=== PATIENT | female | born 1965 | race Caucasian/White ===

== ENCOUNTER 2016-04-08 19:57 | Emergency (ER) | payer BC | END 2016-04-08 22:01 | disposition home or self-care (01) | LOC: D.ER 19:57 | DX: T78.40XA Allergy, unspecified, initial encounter (principal); X58.XXXA Exposure to other specified factors, initial encounter; E11.9 Type 2 diabetes mellitus without complications ==

== ENCOUNTER → 2016-05-05 16:22 | Outpatient (CLI) | payer BC | END | disposition home or self-care (01) | LOC: D.MAMMO 04-16 10:30 → D.US 04-16 11:30 → D.MAMMO 10:30 | DX: R92.8 Other abnormal and inconclusive findings on diagnostic imaging of breast (principal) ==

== ENCOUNTER → 2017-07-24 21:36 | Outpatient (CLI) | payer BC | END | disposition home or self-care (01) | LOC: D.MAMMO 11:30 | DX: Z12.31 Encounter for screening mammogram for malignant neoplasm of breast (principal) ==

== ENCOUNTER → 2017-08-14 23:48 | Outpatient (CLI) | payer BC | END | disposition home or self-care (01) | LOC: D.MAMMO 10:00 | DX: R92.8 Other abnormal and inconclusive findings on diagnostic imaging of breast (principal) ==

== ENCOUNTER 2018-04-05 20:30 | Emergency (ER) | payer BC ==
[~2018-04-05] VITALS: Ht 165.1 cm; Wt 90.9 kg
[2018-04-05 20:32] VITALS: Ht 165.1 cm; Wt 90.9 kg
[2018-04-05] MEDS ORDERED: NORCO 10-325 TA1 TAB PO (21:31)
[2018-04-05 22:00] VITALS: BP 136/87
== END 2018-04-05 22:00 | disposition home or self-care (01) ==
LOC: D.ER 20:30
DX: S82.61XA Displaced fracture of lateral malleolus of right fibula, initial encounter for closed fracture (principal); W18.31XA Fall on same level due to stepping on an object, initial encounter; Y93.89 Activity, other specified; Y92.019 Unspecified place in single-family (private) house as the place of occurrence of the external cause; S83.91XA Sprain of unspecified site of right knee, initial encounter

== ENCOUNTER 2018-05-18 10:03 | Day surgery (SDC) | payer BC ==
[~2018-05-18] VITALS: Ht 167.6 cm; Wt 90.7 kg
--- NOTE | ~2018-05-18 | OP ---
PATIENT NAME: CHERY KRISHNAMURTHY MEDICAL RECORD: [id number] LOCATION:[facility] ADMISSION DATE: SURGEON: MYNOR TRINIDAD DO DATE OF OPERATION: 05/18/2018 PROCEDURES PERFORMED: Right knee arthroscopy with loose body removal, partial medial meniscectomy, and patellar abrasion chondroplasty. PREOPERATIVE DIAGNOSES: Right knee pain, medial meniscal tear. POSTOPERATIVE DIAGNOSES: Loose body, patellar chondromalacia, and medial meniscal tear. INDICATIONS: Ms. Krishnamurthy is a 52-year-old female that twisted her knee. She dislocated her patella about 6 weeks ago and broke her fibula. She did not complain much of the knee pain due to her fibula being broke and treated that nonoperatively until she started to complain of her knee hurting and then told us she dislocated her patella. After hearing that, she was placed in a PTO brace, but it has continued to hurt her. We got an MRI, which demonstrated a meniscal tear and some chondromalacia, but not severe. I told her we could scope the knee, tear out the meniscus and look at everything and give her some relief. She could weightbear on the knee likely afterwards and thus we did something different. She was okay and understood the risks and benefits including infection, bleeding, damage to nerve or vessels, need for further surgery. She signed the consent. SURGEON: Mynor Trinidad DO DESCRIPTION OF PROCEDURE: The patient was taken to the operative suite, laid in the supine position, and given general anesthetic. LMA was placed. The right lower extremity was prepped and draped in sterile fashion. A time-out was performed and everyone was in agreement with correct side, site, patient, and procedure. The patient received 2 grams of Ancef preoperatively. The incision then began for the lateral portal of the knee and the trocar was entered into the knee. The camera was then entered. Severe chondromalacia was seen on the patella with grade III chondromalacia as it was inspected. The lateral gutter was then inspected and a loose body was noted in the lateral gutter. It was not too firm, but was noted and we would go after it after the rest of the knee scope. The medial gutter was inspected and the loose body was seen there. The knee was then flexed down and the medial compartment was entered. An 18-gauge spinal needle was used to establish the medial portal. A #11 blade scalpel was used after that was pulled to open the skin more. The trocar was then entered in to open the area. Probe was then brought in and a small tear in the posterior horn of the medial meniscus was noted. This was trimmed out with a biter and then any loose body was trimmed out further back to a stable position with shaver. Probe was then entered back in the knee. The ACL was probed and seen to be in very good shape and then the lateral compartment. The knee was [id number] and the lateral compartment was entered. No loose body was seen in the compartment and the cartilage. The medial and lateral compartments looked good. No tears in the lateral meniscus were seen. The scope was then changed from the lateral to medial portal and the loose bodies in the lateral gutter were noted. First, a biter was brought in, and as it was a bit crumbled, then a shaver was brought in and the loose body was removed with shaver. The scope was then put back into the lateral portal and the shaver was brought into the medial portal. The patellar abrasion chondroplasty was done, removing some OPERATIVE REPORT [id number] CHERY KRISHNAMURTHY of the cartilage. It was loose on the patella. After this was completed, the suction was turned on and the water was turned off and excess fluid was removed from the knee. The portal sites were then injected with 0.5% Marcaine around them and then the portal sites were closed with 4-0 Monocryl in inverted interrupted fashion. Steri-Strips, Adaptic, 4 x 4's, ABD, Webril, and Yanick wrap were then placed on the knee. ROSALIO hose stockings were placed up to the knee. The patient was awakened and taken to recovery in stable condition. TRANSINT:[id number] Voice Confirmation ID: [id number] DOCUMENT ID: [id number] MYNOR TRINIDAD DO CC: [id number] DICTATION DATE: 05/18/18 135 COMMISSION SPECIALIST: 05/18/18 [id number] [facility] [address] [place] [address]
[~2018-05-18 10:03] MED LIST: LISINOPRIL20 MG PO; NORCO 10-325 TA1 TAB PO
[2018-05-18 10:28] LABS: HEMATOCRIT 42.1 % (36.0-48.0); HEMOGLOBIN 14.4 g/dL (12-16); MCH 29.9 pg (26.0-34.0); MCHC 34.2 g/dL (31.0-37.0); MCV 87.3 fL (80.0-100.0); MEAN PLATELET VOLUME 10.1 fL (7.4-10.4); RBC 4.82 10x6/uL (4.00-5.40); RDW 12.3 % (11.5-14.5)
[2018-05-18 10:48] LABS: CALC OSMOLALITY 280 mosm/kg (275-300); CALCIUM 9.7 mg/dL (8.5-10.1); CARBON DIOXIDE 27.6 mmol/L (21.0-32.0); CHLORIDE - SERUM 102 mmol/L (98-107); CREATININE - SERUM 0.7 mg/dL (0.6-1.3); POTASSIUM - SERUM 4.2 mmol/L (3.5-5.1); SODIUM 140 mmol/L (136-145); UREA NITROGEN 15 mg/dL (7-18); eGFR NON AFRICAN AMERICAN > 90 mL/min (90-120)
[2018-05-18 10:50] LABS: GLUCOSE 115 mg/dL (74-106)
[2018-05-18 11:26] VITALS: BP 144/76; Ht 167.6 cm; Wt 90.7 kg
[2018-05-18] MEDS ORDERED: PERCOCET 7.5/321 TAB PO (14:00)
== END 2018-05-18 16:15 | disposition home or self-care (01) ==
LOC: D.OPS 10:03 → D.PAN 13:00 → D.OPS 13:00
PROVIDERS: Anesthesiology
DX: S83.241A Other tear of medial meniscus, current injury, right knee, initial encounter (principal); X58.XXXA Exposure to other specified factors, initial encounter; M22.41 Chondromalacia patellae, right knee

== ENCOUNTER 2019-03-11 09:00 | Outpatient (CLI) | payer BC ==
[2018-05-18 11:26] VITALS: BMI 32.3
[~2019-03-11 09:00] MED LIST changes: +PERCOCET 7.5/321 TAB PO
== END 2019-03-11 10:00 | disposition home or self-care (01) ==
LOC: D.MAMMO 09:00
PROVIDERS: ATTEND Family Medicine
DX: Z12.31 Encounter for screening mammogram for malignant neoplasm of breast (principal)